=== PATIENT | female | born 1980 | race Caucasian/White ===

== ENCOUNTER → 2024-06-13 | Outpatient (CLI) | payer OTHER ==
--- NOTE | 2024-06-13 11:56 | XR ---
EXAMINATION TYPE: XR thoracic spine complete DATE OF EXAM: 06/13/2024 11:36 AM COMPARISON: None. CLINICAL INDICATION: Female, 44 years old with history of M546 THOR PAIN, pain TECHNIQUE: 5 view(s) obtained. FINDINGS: There is mild kyphosis within the mid thoracic spine. Very minimal spondylosis is present. Mild diffu se disc space narrowing is present. Vertebral body heights appear preserved. IMPRESSION: 1. Mild thoracic kyphosis. [facility], , 06/13/2024 11:53 AM
== END | disposition home or self-care (01) ==
LOC: RADXRYALE 11:14
PROVIDERS: ATTEND Nurse Practitioner
DX: M40.294 Other kyphosis, thoracic region (principal); M47.894 Other spondylosis, thoracic region
CPT/HCPCS: 72072